=== PATIENT | male | born 1955 | race Caucasian/White ===

== ENCOUNTER 2017-08-03 08:16 | Day surgery (SDC) | payer BC, OTHER ==
[2017-07-31 08:49] VITALS: BMI 29.0
[~2017-08-03 08:16] MED LIST: LACTATED RINGERS 1,000 ML IV SCH
[2017-08-03 08:46] VITALS: RESP 16; TEMP 97.7
[2017-08-03] MEDS ORDERED: PROPOFOL 10 MG/ML 20 ML VIAL IV ONE (09:12)
[2017-08-03] MEDS ORDERED: LIDOCAINE 1% INJ 10MG/ML (20 ML MDV) ONE (09:12)
--- NOTE | 2017-08-03 09:16 | P.GSHP ---
History of Present Illness H&P Date: 08/03/17 Chief Complaint: Colon cancer screening Patient here today for colonoscopy. Last colonoscopy 10 years ago. No bowel related complaints. No family history of colon cancer. Past Medical History Additional Past Medical History / Comment(s): HX OF COLON POLYPS, POSSIBLE SLEEP APNEA. History of Any Multi-Drug Resistant Organisms: None Reported Past Surgical History: No Surgical Hx Reported Additional Past Surgical History / Comment(s): EGD , COLONOSCOPY Past Anesthesia/Blood Transfusion Reactions: No Reported Reaction Past Psychological History: No Psychological Hx Reported Smoking Status: Former smoker Past Alcohol Use History: Rare Additional Past Alcohol Use History / Comment(s): QUIT SMOKING 15-20 YEARS AGO. Past Drug Use History: None Reported - Past Family History Mother Family Medical History: No Reported History Medications and Allergies Home Medications Medication Instructions Recorded Confirmed Type No Known Home Medications [No 07/31/17 08/03/17 History Known Home Medications] Allergies Allergy/AdvReac Type Severity Reaction Status Date / Time No Known Allergies Allergy Verified 08/03/17 08:48 Surgical - Exam Vital Signs Temp Pulse Resp BP Pulse Ox 97.7 F 71 16 118/75 97 08/03/17 08:46 08/03/17 08:46 08/03/17 08:46 08/03/17 08:46 08/03/17 08:46 Physical exam: General: Well-developed, well-nourished HEENT: Normocephalic, sclerae nonicteric Abdomen: Nontender, nondistended Extremities: No edema Neuro: Alert and oriented Assessment and Plan (1) Colon cancer screening Narrative/Plan: Will proceed with colonoscopy at this time. Current Visit: Yes Status: Acute Code(s): Z12.11 - ENCOUNTER FOR SCREENING FOR MALIGNANT NEOPLASM OF COLON SNOMED Code(s): 852729984
--- NOTE | 2017-08-03 09:27 | P.PCN ---
Date of Procedure: 08/03/17 Procedure(s) Performed: PREOPERATIVE DIAGNOSIS: Colon cancer screening POSTOPERATIVE DIAGNOSIS: Pandiverticulos PROCEDURE: Colonoscopy ANESTHESIA: MAC SURGEON: James Mobley M.D. SPECIMENS: None ENDOSCOPIC PROCEDURE: The patient was placed on the endoscopy table in the left decubitus position. The Olympus colonoscope was inserted into the anus and passed under direct visualization to the base of the cecum. The appendiceal orifice was visualized. From that point the scope was slowly withdrawn inspecting all surfaces carefully. There were no neoplastic inflammatory or polypoid lesions throughout the cecum, ascending, transverse, descending, sigmoid and rectum. There was moderate diverticulosis noted throughout the colon. Digital rectal examination was normal. The patient was taken to the recovery room in stable condition per anesthesia guidelines. RECOMMENDATIONS: Increase fiber. Follow-up colonoscopy 10 years.
[2017-08-03 09:49] VITALS: BP 118/78
[2017-08-03 09:55] VITALS: PULSE 59
== END 2017-08-03 11:29 | disposition home or self-care (01) ==
LOC: ORWHC2ENDO 08:16
PROVIDERS: ATTEND Surgery
DX: Z12.11 Encounter for screening for malignant neoplasm of colon (principal); K57.30 Diverticulosis of large intestine without perforation or abscess without bleeding; Z86.010 Personal history of colon polyps; Z87.891 Personal history of nicotine dependence
CPT/HCPCS: J2001; J2704; G0105

== ENCOUNTER → 2017-08-26 | Outpatient (CLI) | payer BC ==
--- NOTE | 2017-08-26 10:36 | ECHOF ---
Referral Reason:E78.5 Hyperlipids, Z82.49 Family hx Myocardial Inf MEASUREMENTS -------- HEIGHT: 170.2 cm WEIGHT: 83.9 kg BP: 162/78 RVIDd: 3.1 cm (< 3.3) IVSd: 1.1 cm (0.6 - 1.1) LVIDd: 4.0 cm (3.9 - 5.3) LVPWd: 1.0 cm (0.6 - 1.1) IVSs: 1.4 cm LVIDs: 2.7 cm LVPWs: 1.5 cm LAESV Index (A-L): 12.99 ml/m Ao Diam: 3.5 cm (2.0 - 3.7) AV Cusp: 2.1 cm (1.5 - 2.6) LA Diam: 3.0 cm (2.7 - 3.8) MV EXCURSION: 17.245 mm (> 18.000) MV EF SLOPE: 87 mm/s (70 - 150) EPSS: 0.4 cm MV E Sohan: 0.80 m/s MV DecT: 226 ms MV A Sohan: 0.71 m/s MV E/A Ratio: 1.13 RAP: 5.00 mmHg RVSP: 14.89 mmHg FINDINGS -------- Sinus rhythm. This was a technically adequate study. The left ventricular size is normal. Left ventricular wall thickness is normal. Overall left vent ricular systolic function is normal with, an EF between 55 - 60 %. The right ventricle is normal in size and function. Normal LA size by volume 22+/-6 ml/m2. The right atrium is normal in size. Aortic valve is trileaflet and is mildly thickened. There is no evidence of aortic regurgitation. There is no evidence of aortic stenosis. The mitral valve leaflets are mildly thickened. There is trace mitral regurgitation. Trace tricuspid regurgitation present. Right ventricular systolic pressure is normal at < 35 mmHg. There is no evidence of pulmonary hypertension. Trace/mild (physiologic) pulmonic regurgitation. The aortic root size is normal. Normal inferior vena cava with normal inspiratory collapse consistent with estimated right atrial pre ssure of 5 mmHg. There is no pericardial effusion. CONCLUSIONS -------- 1. Sinus rhythm. 2. This was a technically adequate study. 3. The left ventricular size is normal. 4. Left ventricular wall thickness is normal. 5. Overall left ventricular systolic function is normal with, an EF between 55 - 60 %. 6. Normal LA size by volume 22+/-6 ml/m2. 7. Aortic valve is trileaflet and is mildly thickened. 8. The mitral valve leaflets are mildly thickened. 9. There is trace mitral regurgitation. 10. Trace tricuspid regurgitation present. 11. Right ventricular systolic pressure is normal at < 35 mmHg. 12. There is no evidence of pulmonary hypertension. 13. Trace/mild (physiologic) pulmonic regurgitation. 14. The aortic root size is normal. 15. There is no pericardial effusion. PEDIATRIC HOSPITALIST: Kolton Sy RDCS
--- NOTE | 2017-08-26 10:57 | EST ---
EXERCISE STRESS DATE OF SERVICE: 08/26/2017 AGE: 62 SEX: Male HT: 67" WT: 185 pounds PROTOCOL: Stanley STAGE: II DURATION OF EXERCISE: 7-1/2 minutes HEART RATE REST: 60 BLOOD PRESSURE REST: 118/74 MAXIMUM HEART RATE ACHIEVED: 141 MAXIMUM BLOOD PRESSURE: 143/66 85% MPHR: 134 100% MPHR: 158 METS: 9 INDICATIONS: Family history of premature coronary artery disease. CLINICAL INFORMATION: Baseline EKG shows sinus rhythm, normal axis, normal intervals. Patient exercised on Stanley protocol for a total of 7-1/2 minutes achieving 9 METS and 89% of predicted maximal heart rate without chest pain or diagnostic ST-segment depression. CONCLUSIONS: 1. Above-average exercise tolerance. 2. Negative stress test by EKG criteria. MMODL / IJN: [id number] /
== END | disposition home or self-care (01) ==
LOC: RADECHMAIN 08:22
PROVIDERS: ATTEND Family Medicine
DX: I08.0 Rheumatic disorders of both mitral and aortic valves (principal)
CPT/HCPCS: 93017; 93306

== ENCOUNTER → 2017-11-05 | Outpatient (CLI) | payer BC ==
--- NOTE | 2017-11-05 12:12 | CONS ---
CONSULTATION DATE OF SERVICE: 11/05/2017 A 62-year-old gentleman who has been evaluated in the [facility] for possible obstructive sleep apnea-hypopnea syndrome. HISTORY OF PRESENT ILLNESS/SLEEP-WAKE EVALUATION: Patient's usual sleep schedule on working days from 11:30 p.m. until around 6:15 a.m. and on weekends from around 11:30 p.m. until 7 a.m. No problems with falling asleep. No TV in bedroom. He sleeps on the side position. Cannot sleep on the stomach or back. Has some back problems. In the morning he feels sometimes tired and feels tiredness during the day. He usually does not take any naps during the day because he is busy and does not have time. He does not take naps on weekends. Kite Sleepiness Scale is 2. PAST MEDICAL HISTORY: Positive for the back problems. PAST SURGICAL HISTORY: None. SOCIAL HISTORY: Positive for smoking in the past, quit 30 years ago. Alcohol consumption rarely. MEDICATIONS: None. FAMILY HISTORY: Heart problems, coronary artery disease by his dad. PHYSICAL EXAM: GENERAL A 62-year-old gentleman without distress. VITAL SIGNS BP 131/62, HR 73, RR of 14, height 5 foot 6 inches, weight 187. Neck 16- 1/3 inches in circumference. Temperature 98.5, oxygen saturation room air 98%. HEENT PERRLA, EOMI. Oropharynx short distance between the soft palate and posterior pharyngeal wall. Some restriction of nasal breathing bilaterally. NECK Supple, no JVD. Thyroid is not palpable. LUNGS Clear to percussion and to auscultation. Good air exchange. No wheezing or rhonchi. HEART S1, S2 regular. No murmurs, gallops, or rubs. ABDOMEN Slightly obese. Soft and nontender. Bowel sounds are present. No organomegaly appreciated. EXTREMITIES No clubbing or cyanosis. AUDIO/VIDEO TECHNICIAN Awake, alert, and oriented X3. Cranial nerves 2 to 7 intact. There is no fasciculation or atrophy. IMPRESSION: 1. Snoring, short distance between soft palate and posterior pharyngeal wall, restriction of nasal breathing, feeling tiredness. Possible obstructive sleep apnea-hypopnea syndrome also wide neck. 2. Mild obesity, BMI 30.1. 3. Restriction of nasal breathing. 4. Low back problems. PLAN: 1. Sleep study for evaluation of patient breathing during the sleep. 2. Following plan on the basis of results of diagnostic sleep study. 3. Losing weight. 4. Sleep hygiene with regular time in bed for at least 7-1/2 hours. 5. No driving if feeling any sleepiness. Thank you very much for referring this patient for consultation. Sincerely, Dae Cohen MD, PhD, FAASM Diplomat of [place] [employer] [place] [employer] Program Manager of [facility] [place] MMODL / IJN: [id number] /
== END | disposition home or self-care (01) ==
LOC: SLEEP 11:00
PROVIDERS: ATTEND Internal Medicine
DX: R06.83 Snoring (principal); R53.83 Other fatigue; J39.2 Other diseases of pharynx; R06.89 Other abnormalities of breathing; E66.9 Obesity, unspecified; Z68.30 Body mass index [BMI] 30.0-30.9, adult; Z87.891 Personal history of nicotine dependence
CPT/HCPCS: 99211